=== PATIENT | female | born 1950 | race Caucasian/White ===

== ENCOUNTER 2024-01-02 13:39 | Inpatient (IN) | payer OTHER, SELFPAY ==
[2024-01-02] VITALS (17 sets, daily range): BP systolic 137–170; BP diastolic 55–109; BMI 28.8
[2024-01-02 07:44] LABS: % Basophils 0.4 % (0-2); % Eosinophils 0.4 % (0-6); % Immature Granulocytes 0.4 % (0-0.5); % Lymphocytes 19.1 % (20.5-51.1); % Monocytes 4.2 % (1.7-9.3); % Neutrophils 75.5 % (42.2-75.2); Absolute Lymphocytes 1.4 10^3/uL (1.2-3.4); Absolute Monocytes 0.3 10^3/uL (0.1-0.6); Absolute Neutrophils 5.7 10^3/uL (1.4-6.5); Hematocrit 32.7 % (37.0-47.0); Hemoglobin 12.1 g/dL (12.0-16.0); Mean Corpuscular Hgb 30.9 pg (27.0-31.0); Mean Corpuscular Volume 83.6 fL (81.0-99.0); Mean Platelet Volume 8.8 fL (7.4-10.4); Nucleated Red Blood Cells % 0 %; Platelet Count 262 10^3/uL (130-400); Red Blood Cell Count 3.91 10^6/uL (4.20-5.40); Red Cell Dist. Width 12.3 % (11.5-14.5); White Blood Cell Count 7.5 10^3/uL (4.8-10.8)
[2024-01-02] MEDS: BENTYL 20 MG IM (07:45)
[2024-01-02] MEDS: TORADOL 15 MG IV (07:45)
[2024-01-02 07:55] LABS: ALT (SGPT) 16 U/L (0-35); AST (SGOT) 26 U/L (14-36); Albumin 4.9 g/dl (3.5-5.0); Alkaline Phosphatase 76 U/L (38-126); Blood Urea Nitrogen 32 mg/dl (7-17); Calcium 10.2 mg/dl (8.4-10.2); Carbon Dioxide 22 mmol/L (22-30); Chloride 100 mmol/L (98-107); Estimated Creatinine Clearance 45 ml/min; Glucose 164 mg/dl (70-99); Potassium 4.3 mmol/L (3.5-5.1); Sodium 134 mmol/L (135-145); Total Bilirubin 0.7 mg/dl (0.2-1.3); eGFR 48.39
--- NOTE | 2024-01-02 08:15 | ED.GENMED ---
History of Present Illness
General
Chief Complaint: Abdominal Pain
Source: patient
Exam Limitations: none
Time Seen by Provider: 01/02/24 07:35
Nursing documentation reviewed up to this point in time: agreed with
History of Present Illness
History of Present Illness:
73-year-old female with past medical history of GERD, hypertension presenting to the emergency department today with concerns of lower abdominal pain and started at 3 AM this morning which is roughly 3 hours prior to arrival to the emergency
department. Associated nausea no vomiting no changes in bowel movements no chest pain or shortness of breath. Pain is diffuse to the abdomen seems to be maximal to the right lower and right upper abdomen.
Review of Systems
Review of Systems
Allergies reviewed?: Yes
All Other Systems: ROS reviewed and negative except as documented in HPI and ROS
Phy Exam
Physical Exam
Physical Exam:
GENERAL: Alert , in no apparent distress
EYE: pupils equal and reactive
NECK: Supple, no significant adenopathy.
ENT: o/p clr, mmm.
CARDIAC: Regular rate and rhythm .
LUNGS: Clear breath sounds bilaterally, no acute respiratory distress, no wheezes/rales/rhonchi
ABDOMEN: Diffuse abdominal pain no focal tenderness
NEUROLOGICAL: Alert and oriented, no focal neuro deficits
SKIN: Warm and dry, skin intact.
MUSCULOSKELETAL: No edema, well perfused.
PSYCH: Normal and appropriate interaction.
Course
Orders/Labs/Results
Orders:
Orders
01/02/24 07:27
Electrocardiogram (*1) Urgent
Reason for Study: Abdominal Pain
EKG- Treatment ONCE
01/02/24 07:35
CMP [Comprehensive Metabolic Panel] Urgent
Complete Blood Count/With Diff Urgent
01/02/24 07:41
CT Abd/Pel (IV only)-DH only Urgent
Comment:
Reason For Exam: diffuse abd pain abrupt this am
Urinalysis Reflex To Culture Urgent
01/02/24 07:42
Dicyclomine HCl [Bentyl] 20 mg IM NOW STA
Ketorolac [Toradol] 15 mg IV NOW STA
01/02/24 09:46
NG Tube [Gastrointestinal Tubes] As Directed
Type: [place] sump
To suction?: Yes
Type of suction: Low intermittent
Irrigate tube?: Yes
Irrigant: Tap Water
Frequency: Q4H
Amount in mls: 30
Irrigation Directions: Irrigate Q4H and PRN
01/02/24 Lunch
NPO
Allow oral meds: Yes
Allow clear liquids: No
01/02/24 10:08
HYDROmorphone [Dilaudid] 1 mg IV NOW STA
01/02/24 11:19
HYDROmorphone [Dilaudid] 0.5 mg IV NOW STA
Chest X-ray Portable [CR Chest Portable - 1 View] Urgent
Comment:
Reason For Exam: ng tube confirmation
Reason Study Needs to be Portable: Unable to Transport
01/02/24 12:30
CeFAZolin 2 GRAM [Ancef] 2 grams in 10 ml IV PRE PROCEDURE
MetroNIDAZOLE 500 MG/100 ML [Flagyl 500 mg] 100 ml IV ONCE
Abnormal Lab Results
01/02/24
07:35
RBC 3.91 L 10^6/uL
(4.20-5.40)
Hct 32.7 L %
(37.0-47.0)
Neutrophils % 75.5 H %
(42.2-75.2)
Lymphocytes % 19.1 L %
(20.5-51.1)
Sodium 134 L mmol/L
(135-145)
BUN 32 H mg/dl
(7-17)
Creatinine 1.2 H mg/dL
(0.6-1.0)
Glucose 164 H mg/dl
(70-99)
01/02/24 07:35
01/02/24 07:35
Vital Signs
Initial and Last Documented VS:
Initial Vital Signs
Pulse Resp BP Pulse Ox
52 14 144/55 100
01/02/24 07:26 01/02/24 07:26 01/02/24 07:26 01/02/24 07:26
Last Documented Vital Signs
Temp Pulse Resp BP Pulse Ox
98.2 F 54 8 137/64 99
01/02/24 07:28 01/02/24 11:00 01/02/24 11:00 01/02/24 11:00 01/02/24 11:00
MDM/Problems Addressed
MDM/Problems Addressed:
73-year-old female presenting to the emergency department with diffuse abdominal pain occurring earlier this morning a few hours prior to arrival to the emergency department associated nausea no vomiting. Has been feeling somewhat constipated.
Here she is diffuse vague abdominal tenderness nonperitoneal no guarding. No focal tenderness. SBO found on CT scan. Case discussed with general surgery saw the patient who will likely take her to the OR today NG tube placed admitted to medicine.
*Critical Care Note
Total Time (30-74mins, 75-104mins- exclusive of procedures): Not Applicable
ED Attending Note
-
Portions of this chart may have been created with voice recognition software.� Occasional wrong word or��sound alike� substitutions may have occurred due to the inherent limitations of voice recognition software.
Discharge Plan
Departure
Patient Disposition: Admit
Date of Disposition: 01/02/24
Time of Disposition: 11:51
Admit to: Med/Surg
Admit to doctor: [place]
Presentation/result/management discussed w/ accepting MD/DO: Hospitalist
Patient with high blood pressure during this ER visit?: No
Condition: Good
Covid-19: Not Applicable
Discharge Problem:
SBO (small bowel obstruction)
Prescriptions:
No Action
meloxicam 15 mg Tablet
15 mg PO DAILY
oxycodone-acetaminophen 5-325 mg Tablet
1 tab PO BID
Patient Comments:
01/02/24: filled 12/13/23 for 60 tablets at [facility].
magnesium oxide 400 mg (241.3 mg magnesium) Tablet
400 mg PO DAILY
esomeprazole magnesium 40 mg Capsule,Delayed Release(Dr/Ec)
40 mg PO DAILY
docusate sodium [Stool Softener] 100 mg Capsule
100 mg PO QPM
lisinopril-hydrochlorothiazide 20-25 mg Tablet
1 tab PO DAILY
omega 0-ely-khc-fish oil [Fish Oil] 1,000 mg (120 mg-180 mg) Capsule
1 cap PO DAILY
vonwvdoindz-B2-Ffjzvuesa serr [Osteo Bi-Flex (5-Loxin)] 1,500-400-100 mg-unit-mg Tablet
1 tab PO DAILY
turmeric 400 mg Capsule
400 mg PO DAILY
Referrals:
Mayank Esquivel DO [Family Provider] -
Interventions
Interventions:
*Risk Screen - Suicide Last Done: 01/02/24 07:40
*Neglect/Abuse Screening Last Done: 01/02/24 07:40
ED- Fall Risk Assessment Last Done: 01/02/24 07:40
*ED COVID-19 Vaccine History Last Done: 01/02/24 07:40
FU-Bgbosl-Wxosarvqzi Assessment Last Done: 01/02/24 07:40
Discharge Date and Time
Print Language: BELARUSIAN
[2024-01-02] MEDS: DILAUDID 1 MG IV (10:24)
--- NOTE | 2024-01-02 10:58 | CON.GS ---
Addendum entered and electronically signed by Franky Arguello MD 01/02/24 12:32:
Patient seen and examined.
Patient is a 73 yo F with a PMH of HTN, spinal stenosis and chronic back pain, and s/p open ERIC who presents with less than 24 hours of abdominal pain. Ms. Krueger states that she awoke acutely at 3 AM this morning with severe abdominal pain. Pain
is throughout her abdomen though primarily in the RUQ. Associated nausea and vomiting. No fevers or chills. She denies any issues prior to this. No flatus or bowel movement since the onset of symptoms. Currently she continues to have abdominal
pain and discomfort.
Gen: NAD
Abd: soft, tender diffusely primarily in RUQ, distended, localized peritonitis, lower midline incision well healed
Labs and CT scan imaging were reviewed.
Patient is a 73 yo F p/w SBO likely secondary to adhesions
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 Fair degree of small bowel distention with associated bowel wall thickening and mesenteric edema. No evidence of pneumatosis or free air. Normal
WBC, afebrile and hemodynamically stable. Lactate pending. Natural history and pathophysiology of bowel obstructions was briefly reviewed. Options for management including medical management with bowel rest, decompression, and IV fluid
resuscitation versus surgical management were considered and discussed. Given the concerning findings on her CT scan as well as level of persistent pain would recommend operative exploration.
Plan for a laparoscopic possible open exploratory laparotomy, lysis of adhesions, possible bowel resection. The procedure itself, as well as the risks, benefits, and alternatives was discussed. Specifically, we discussed the risks of bleeding,
infection, injury to surrounding structures (bowel), wound complications, recurrent bowel obstructions, and general anesthetic complications. Typical postprocedure recovery was discussed. All questions answered. Consent signed.
-- Laparoscopic possible open exploratory laparotomy, lysis of adhesions, possible bowel resection
-- NPO, IVF, NGT decompression
-- Abx: Ancef and Flagyl
-- Admit post-operatively
Original Note:
Consultation
-
Requesting Provider: Kennedy
Reason for Consultation: sbo
Medical History
-
Chief Complaint: abdominal pain
History of Present Illness:
Ms. Krueger is a 73 yo female with a h/o HTN, GERD and ERIC who presents with severe right lower abdominal pain which began acutely around 3 am this morning accompanied initially by nausea and vomiting. She denies fevers or chills. She notes no
problems yesterday with eating or drinking fluids with normal bowel function. On exam, she is significantly tender to the right side of the abdomen with guarding and distention present, there is mild generalized tenderness to the left abdomen as
well.
Past Medical History
Past Medical History: GERD, HTN and Other (spinal stenosis)
Past Surgical History: Gynecological (ERIC)
Social History
Tobacco: Non-Smoker
Alcohol: Other (previously drank heavily but quit remotely)
Living: With Family
Family History
Family History: Reviewed & Not Pertinent
Allergies / Home Medications
Allergy/AdvReac Type Severity Reaction Status Date / Time
No Known Allergies Allergy Verified 01/02/24 07:34
�Medication �Instructions �Recorded �Confirmed �Type
docusate sodium 100 mg capsule 100 mg PO QPM 01/02/24 01/02/24 History
(Stool Softener)
esomeprazole magnesium 40 mg 40 mg PO DAILY 01/02/24 01/02/24 History
capsule,delayed release
glucosamine SWz-N5-Odcfaoxke 1 tab PO DAILY 01/02/24 01/02/24 History
james 1,500 mg-400 unit-100 mg
tablet (Osteo Bi-Flex (5-Loxin))
lisinopril 20 1 tab PO DAILY 01/02/24 01/02/24 History
mg-hydrochlorothiazide 25 mg tablet
magnesium oxide 400 mg (241.3 mg 400 mg PO DAILY 01/02/24 01/02/24 History
magnesium) tablet
meloxicam 15 mg tablet 15 mg PO DAILY 01/02/24 01/02/24 History
omega 0-hkm-ffz-fish oil 1,000 mg 1 cap PO DAILY 01/02/24 01/02/24 History
(120 mg-180 mg) capsule (Fish Oil)
oxycodone-acetaminophen 5 mg-325 1 tab PO BID 01/02/24 01/02/24 History
mg tablet
turmeric 400 mg capsule 400 mg PO DAILY 01/02/24 01/02/24 History
Review of Systems
-
History Source: Patient and Family
All other systems: Negative unless noted
A 10 point review of systems was completed, and was negative except as per HPI.
Physical Exam
Vital Signs
Temp Pulse Resp BP Pulse Ox
98.2 F 63 9 148/59 100
01/02/24 07:28 01/02/24 09:15 01/02/24 09:15 01/02/24 08:00 01/02/24 09:15
01/01/24 01/02/24 01/03/24
06:59 06:59 06:59
Actual Weight 78.4 kg
Body Mass Index (BMI) 28.8
Lab Results
01/02/24 07:35
01/02/24 07:35
WBC 7.5 10^3/uL (4.8-10.8) 01/02/24 07:35
Hgb 12.1 g/dL (12.0-16.0) 01/02/24 07:35
Hct 32.7 % (37.0-47.0) L 01/02/24 07:35
Plt Count 262 10^3/uL (130-400) 01/02/24 07:35
Abs Immat Gran (auto) 0.0 10^3/uL (0-0.05) 01/02/24 07:35
Neutrophils % 75.5 % (42.2-75.2) H 01/02/24 07:35
Physical Exam
General: Well Developed and Pain; Negative Comfortable
HEENT: Moist Mucous Membranes
Respiratory: Non Labored Respirations
GI: Soft, Tender (severe to right side with guarding, mild tenderness to left) and Distended
Skin: Warm
Neuro: Awake, Alert and AO x 3
Psych: Calm
Data Reviewed
-
CT Scan: Image Personally Visualized and interpreted, Report Reviewed by me, Discussed with Physician, Discussed with Patient and Discussed with Family
Labs: Labs Reviewed by me, Discussed with Nurse, Discussed with Patient and Discussed with Family
Old Records: Reviewed
Assessment / Plan
-
73 yo female with a h/o HTN, GERD and ERIC who presents with severe abdominal pain on the right side which began acutely this am around 3am with n/v. CT reviewed with concern for a closed loop small bowel obstruction to the distal small bowel in the
RLQ. No leukocytosis or fevers present. BUN/Cr noted to be mildly elevated suspect dehydration given acute vomiting this am. Vitals stable.
--Admit to medicine
--NPO for OR today for dx lap
--Analgesics/antiemetics prn
--IVF while NPO
[2024-01-02] MEDS: DILAUDID 0.5 MG IV ×2 (11:26→20:27)
--- NOTE | 2024-01-02 12:15 | W.SUR.PREOP ---
Pre-Operative Surgical Note
-
I have examined this patient prior to the performance of the scheduled procedure.
The patient's condition is unchanged from the time of the current History and
Physical and the patient is able to undergo the scheduled procedure.
--- NOTE | 2024-01-02 13:15 | HPS.HSE ---
Addendum entered and electronically signed by Dionisio Mallory MD 01/03/24 09:22:
I saw and examined the patient.
The DIETARY SERVICES MANAGER or PA's note was reviewed and I agree with the note.
Comment: 73 yo Female with pmhx of spinal stenosis on opioids,hysterectomy came to the hospital with abdominal pain,N/V. On CT its consistent with closed loop SBP. Seen by surgery in ED and plan to go to OR. Currently has NGT. Deneis nausea. Denies
chest pain,sob. Discussed with family at bedside. NPO. Pain Control. Gentle hydration.
General: no distress,conversant
HEENT: Anicteric,+NGT
Respiratory: Clear; No Wheezes
Cardiac: S1/S2 and Regular Rhythm
GI: Soft, Non Distended and Tender (Midepigastric)
Musculoskeletal: No Edema
Neuro: AO x 3, No Motor Deficits and Nonfocal/grossly intact
Psych: Calm
Original Note:
Family Physician
-
Family Physician: Mayank Esquivel
Chief Complaint
-
Abdominal pain, nausea, vomiting, constipation
History of Present Illness
73-year-old female woke up suddenly at 3 AM with mid abdominal pain to the right side with nausea, vomiting. She reports has history of chronic constipation her last bowel movement was approximately 1 week ago which is typical for her. She is on
oral opiates oxycodone/acetaminophen 5/325 1 tab twice daily. She denies fever, chills, chest pain, palpitations, shortness breath, cough, diarrhea, urinary symptoms.
She has past medical history spinal stenosis on chronic oral opiates, GERD, HTN, chronic constipation, hypomagnesemia, former alcohol abuse used to drink 6 pack a day until January 10, 2023
Medical History
Past Medical History
Past Medical History: Reports Other
Additional Past Medical History:
spinal stenosis on chronic oral opiates,
GERD
HTN,
chronic constipation
hypomagnesemia
former alcohol abuse used to drink 6 pack a day until January 10, 2023
Past Surgical History: Reports Other
Additional Past Surgical History:
Hysterectomy
Thyroid surgery
Social History
Tobacco: Non-smoker
Alcohol: Former (former alcohol abuse used to drink 6 pack a day until January 10, 2023)
Drug: None
Personal: Single
Living: With Family (Adult son lives with her)
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
Family History
Family History: Other (Mother age 80s history of dementia, HTN, hypothyroidism, father age 80s [place], HTN, hyperlipidemia, sibling sister CVA COPD Brother [place] age 76 other siblings unsure)
Allergies / Home Medications
Allergies reflects when Allergies were last updated in [facility].
Home Medications with original date entered in [facility]
Allergy/Medication List:
Allergies
Allergy/AdvReac Type Severity Reaction Status Date / Time
No Known Allergies Allergy Verified 01/02/24 07:34
Home Medications
docusate sodium 100 mg capsule (Stool Softener) 100 mg PO QPM 01/02/24
esomeprazole magnesium 40 mg capsule,delayed release 40 mg PO DAILY 01/02/24
glucosamine HUj-O5-Hzwtmskml james 1,500 mg-400 unit-100 mg tablet (Osteo Bi-Flex (5-Loxin)) 1 tab PO DAILY 01/02/24
lisinopril 20 mg-hydrochlorothiazide 25 mg tablet 1 tab PO DAILY 01/02/24
magnesium oxide 400 mg (241.3 mg magnesium) tablet 400 mg PO DAILY 01/02/24
meloxicam 15 mg tablet 15 mg PO DAILY 01/02/24
omega 8-syd-hlu-fish oil 1,000 mg (120 mg-180 mg) capsule (Fish Oil) 1 cap PO DAILY 01/02/24
oxycodone-acetaminophen 5 mg-325 mg tablet 1 tab PO BID 01/02/24
turmeric 400 mg capsule 400 mg PO DAILY 01/02/24
Review of Systems
-
History Source: Patient and Family (At bedside)
A 12 point ROS was completed and negative except as noted: Yes
Constitutional: Denies Fever or Fatigue
EENT: Denies Sore Throat or Runny Nose
Respiratory: Denies Cough or Trouble Breathing
Cardiac: Denies Chest Pain, Diaphoresis or Palpitations
Abdomen/GI: Reports Abdominal Pain (Midepigastric to right upper quadrant), Nausea, Vomiting and Constipated (1 week); Denies Diarrhea
: Denies Dysuria, Frequency, Flank Pain, Incontinence, Difficulty Voiding or Urgency
Musculoskeletal: Denies Joint Pain or Edema
Skin: Denies Itching
Neurological: Denies Dizzy, Headache or Weakness
Endocrine: Reports No Symptoms
Hematologic/Lymphatic: Reports No Symptoms
Psych: Reports Calm
Physical Exam
Vital Signs
Vital Signs
Temp Pulse Resp BP Pulse Ox
98.2 F 57 15 170/73 96
01/02/24 07:28 01/02/24 12:30 01/02/24 12:30 01/02/24 12:00 01/02/24 12:30
Physical Exam
General: Conversant, Pain and Obese; No Fever or Chills
HEENT: NormoCephalic, Anicteric, PERRLA and [place] Conjunctivae
Respiratory: Clear; No Wheezes, Rales or Rhonchi
Cardiac: S1/S2 and Regular Rhythm; No Murmur, Rub or Gallop
Breast: Deferred by me
GI: Soft, Non Distended and Tender (Midepigastric to right upper quadrant with hypoactive bowel sounds although abdomen is soft)
Rectal: Deferred by Provider
Genito-urinary: Deferred by me
Musculoskeletal: No Clubbing, No Cyanosis and No Edema
Skin: Warm and Dry; No Rash
Neuro: AO x 3, No Motor Deficits and Nonfocal/grossly intact; No Cranial Nerves Intact, DTR's Intact & Symmetrical, Slurred Speech, Facial Droop or Tremors
Psych: Calm
Laboratory Results
-
01/02/24 07:35
01/02/24 07:35
Laboratory Results
Total Bilirubin 0.7 mg/dl (0.2-1.3) 01/02/24 07:35
AST 26 U/L (14-36) 01/02/24 07:35
ALT 16 U/L (0-35) 01/02/24 07:35
Alkaline Phosphatase 76 U/L (38-126) 01/02/24 07:35
Data Reviewed
-
CT Scan: Report Reviewed by me
Lab Data: Labs Reviewed by me
Impression/Plan
-
Impression/plan:
Admit to MedSurg
#Closed loop SBO
Patient is on chronic opiates twice daily
-Consult general surgery
-Preop Ancef
-N.p.o.for OR today for laparoscopy
-IV NSS
-IV pain control/antiemetics as needed
-NG tube to low intermittent suction
-IV Protonix 40 mg daily
#Spinal stenosis on chronic oral opiates
Patient takes oxycodone/acetaminophen 5/325mg 1 tab p.o. twice daily
-We will convert to IV Dilaudid while patient is n.p.o.
#CHRISTINE unknown baseline renal function
Creat
-IV NSS
-Follow BMP, follow UA, urine creatinine, urine sodium
#HTN�benign
-Hydralazine IV 10 mg every 6 hours as needed SBP>165 jaquan > 100
-Hold lisinopril/HCTZ will need to obtain dosage from patient
#Spinal stenosis on chronic oral opiates
-Hold meloxicam 15 mg daily
#former alcohol abuse used to drink 6 pack a day until January 10, 2023
DVT prophylaxis
SCDs
Full code
[2024-01-02 13:30] LABS: Lactic Acid 1.3 mmol/L (0.7-2.0)
--- NOTE | 2024-01-02 16:03 | W.IMMPOSTOP ---
Addendum entered and electronically signed by Franky Arguello MD 01/05/24 16:04:
[facility]# [id number]
Original Note:
Surgical Immed Post Op Note
-
Primary Surgeon: Saundra
Assisting Surgeon: SANDI Barajas
Pre-op Diagnosis: SBO
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
Procedure Performed: Diagnostic laparoscopy, exploratory laparotomy, small bowel resection with primary anastomosis
Anesthesia Type: General
Specimen / Cultures:
1. Portion of small bowel
Estimated Blood Loss: 101 cc
Complications: None
Operative Findings:
1. Diagnostic laparoscopy identifying segment of ischemic bowel, conversion to midline laparotomy
2. Omental adhesion within pelvis taken down, adhesion within RUQ causing midgut volvulus
3. 55 cm segment of ischemic bowel, resection with [id number] stapled anastomosis using MAGALI 80 blue load (Baljinder technique)
4. Small bowel run from TI to LT
5. NGT placement confirmed, Mitchell in place
[2024-01-02] MEDS: NSS 1000 IV (16:47)
[2024-01-02] MEDS: DILAUDID 0.25 MG IV (17:01)
--- NOTE | 2024-01-02 17:45 | PTCARENOTE ---
Patient admitted through the emergency room for small bowel obstruction.The patient was taken to surgery for an exploratory laparotomy and small bowel obstruction.The patient rates her pain at a 5-6 out of 10.Vital signs are stable.The dressing is
intact with a scant amount of drainage.The patient is in her bed with the call walters in reach.
[2024-01-02 18:09] LABS: Lactic Acid 1.2 mmol/L (0.7-2.0)
[2024-01-02 18:12] LABS: Blood Urea Nitrogen 34 mg/dl (7-17); Calcium 9.1 mg/dl (8.4-10.2); Carbon Dioxide 23 mmol/L (22-30); Chloride 100 mmol/L (98-107); Estimated Creatinine Clearance 49 ml/min; Glucose 167 mg/dl (70-99); Hematocrit 34.3 % (37.0-47.0); Hemoglobin 12.6 g/dL (12.0-16.0); Mean Corp Hgb Conc. 36.7 g/dL (33.0-37.0); Mean Corpuscular Volume 84.5 fL (81.0-99.0); Mean Platelet Volume 9.2 fL (7.4-10.4); Platelet Count 214 10^3/uL (130-400); Potassium 4.2 mmol/L (3.5-5.1); Red Blood Cell Count 4.06 10^6/uL (4.20-5.40); Red Cell Dist. Width 12.4 % (11.5-14.5); Sodium 133 mmol/L (135-145); eGFR 53.72
[2024-01-02] MEDS: ZOSYN 50 IV ×2 (18:28→23:41)
[2024-01-02] MEDS: OFIRMEV 100 IV (21:11)
[2024-01-02] MEDS: NSS (PRESERVATIVE FREE) IV (23:38)
[2024-01-02] MEDS: PROTONIX IV IV (23:38)
[2024-01-03] MEDS: DILAUDID 0.5 MG IV ×3 (00:28→10:59)
[2024-01-03] MEDS: NSS 1000 IV ×2 (01:09→11:04)
[2024-01-03] MEDS: APRESOLINE 5 MG IV ×2 (03:04→08:12)
[2024-01-03] MEDS: TORADOL 10 MG IV (03:08)
[2024-01-03 03:10] VITALS: BP 175/80
[2024-01-03] MEDS: OFIRMEV 100 IV ×3 (04:27→16:00)
[2024-01-03] MEDS: ZOSYN 50 IV ×4 (05:45→23:41)
[2024-01-03 05:59] VITALS: BMI 28.2
[2024-01-03 06:41] LABS: Hematocrit 31.4 % (37.0-47.0); Hemoglobin 11.7 g/dL (12.0-16.0); Mean Corp Hgb Conc. 37.3 g/dL (33.0-37.0); Mean Corpuscular Hgb 31.9 pg (27.0-31.0); Mean Corpuscular Volume 85.6 fL (81.0-99.0); Mean Platelet Volume 9.1 fL (7.4-10.4); Platelet Count 196 10^3/uL (130-400); Red Blood Cell Count 3.67 10^6/uL (4.20-5.40); Red Cell Dist. Width 12.7 % (11.5-14.5)
[2024-01-03 07:11] LABS: ALT (SGPT) 13 U/L (0-35); AST (SGOT) 28 U/L (14-36); Alkaline Phosphatase 51 U/L (38-126); Blood Urea Nitrogen 41 mg/dl (7-17); Carbon Dioxide 23 mmol/L (22-30); Chloride 101 mmol/L (98-107); Estimated Creatinine Clearance 41 ml/min; Glucose 138 mg/dl (70-99); Magnesium 2.1 mg/dl (1.6-2.3); Potassium 3.7 mmol/L (3.5-5.1); Sodium 134 mmol/L (135-145); Total Bilirubin 0.6 mg/dl (0.2-1.3); Total Protein 6.1 g/dl (6.3-8.2); eGFR 43.96
[2024-01-03 07:55] VITALS: BP 164/76
[2024-01-03] MEDS: PROTONIX IV 40 MG IV (08:16)
[2024-01-03] MEDS: NSS (PRESERVATIVE FREE) 10 ML IV (08:16)
--- NOTE | 2024-01-03 08:36 | W.PN.HOSP.TC ---
Today's Communication/Plan
-
see bold
Assessment / Plan
Assessment / Plan
Gen: NAD, AAOx3.
Eyes: EOMI, PERRLA, no scleral icterus.
Neck: supple.
CV: RRR, +S1/S2, no m/r/g.
Resp: CTAB, no rales, wheezes, or rhonchi.
Abd: absent BS, soft, NT to light palpation, ND
Skin: No rashes.
Neuro: CN 2-12 intact, non-focal.
Psych: Normal mood and affect.
Closed loop SBO:
-on chronic opiates which likely contributed to SBO
-s/p 01/02/24 diagnostic laparoscopy, exploratory laparotomy, small bowel resection with primary anastomosis
-surgery following
-cont Zosyn
-cont IVFs
-cont NGT decompression
-Dilaudid/Toradol PRN
Other problems:
Spinal stenosis: on chronic opiates (chronic opiate use with dependence)
CKD3a (doubt CHRISTINE at this time, unknown baseline Cr)
Essential HTN: IV Hydralazine PRN
Former alcohol abuse disorder
FULL/SCDs
Anticipated Discharge: > 48 hours
Subjective/Interval History
-
Date of Service: January 03, 2024
Abdomen 'sore.' Denies flatus or BM.
Objective Data
-
Labs:
Laboratory Results
01/03/24
06:23
WBC 11.0 H
Hgb 11.7 L
Hct 31.4 L
Plt Count 196
Sodium 134 L
Potassium 3.7
Chloride 101
Carbon Dioxide 23
BUN 41 H
Creatinine 1.3 H
Glucose 138 H
Calcium 9.0
Total Bilirubin 0.6
AST 28
ALT 13
Alkaline Phosphatase 51
Vital Signs:
Vital Signs
Temp Pulse Resp BP Pulse Ox
98.2 F 68 16 164/76 95
01/03/24 07:55 01/03/24 08:12 01/03/24 07:55 01/03/24 08:12 01/03/24 07:55
I&O
01/02/24 01/03/24 01/04/24
06:59 06:59 06:59
Intake Total 1560 / 1560
Output Total 1085 / 1085
Balance 475 / 475
--- NOTE | 2024-01-03 09:22 | W.PN.UPDATE ---
Update Note
Progress Note Update
For Billing purpose only for H and P
--- NOTE | 2024-01-03 09:59 | W.PN.GS2 ---
Today's Communication / Plan
-
NGT/NPO/IVF
Assessment / Plan
-
73 yo female presenting acutely with a closed loop small bowel obstruction with midgut volvulus and ischemic bowel now POD #1 dx lap, ex lap with SBR
Afebrile, Bp elevated, vitals stable
Await return of bowel function
BUN/Cr elevated, suspect dehydration
Mild leukocytosis, mild acute anemia secondary to expected losses and hemodilution
--C/W NGT to suction
--NPO with ice chips for comfort
--IVF while NPO
--Trend labs
--Hold NSAIDs in light of elevated Cr
--C/W Ofirmev/dilaudid as needed for pain
--SCD's while in bed, lovenox sq for vte ppx (will change to heparin if cr continues to rise)
Subjective Data
-
Date of Service: January 03, 2024
Patient seen and examined at bedside with Dr. Geller. Denies n/v. Pain present but improved from prior to surgery. Not yet passing flatus. C/O dry mouth.
Objective Data
-
Intake and Output
01/02/24 01/03/24 01/04/24
06:59 06:59 06:59
Intake Total 1560 / 1560
Output Total 1085 / 1085
Balance 475 / 475
Intake:
IV fluids (Total) 1200 / 1200
NSS 0 / 0
Normosol 100 / 100
IV piggybacks 300 / 300
Amount instilled into GI Tube ( 60 / 60
Total)
[place] Sump 60 / 60
Output:
Gastrointestinal tube output ( 535 / 535
Total)
[place] Sump 535 / 535
Urine, Mitchell 550 / 550
Vital Signs
Temp Pulse Resp BP Pulse Ox
98.2 F 68 16 164/76 95
01/03/24 07:55 01/03/24 08:12 01/03/24 07:55 01/03/24 08:12 01/03/24 07:55
Lab Results
01/03/24 06:23
01/03/24 06:23
Calcium 9.0 mg/dl (8.4-10.2) 01/03/24 06:23
Magnesium 2.1 mg/dl (1.6-2.3) 01/03/24 06:23
Total Bilirubin 0.6 mg/dl (0.2-1.3) 01/03/24 06:23
AST 28 U/L (14-36) 01/03/24 06:23
ALT 13 U/L (0-35) 01/03/24 06:23
Alkaline Phosphatase 51 U/L (38-126) 01/03/24 06:23
Total Protein 6.1 g/dl (6.3-8.2) L 01/03/24 06:23
Albumin 4.0 g/dl (3.5-5.0) 01/03/24 06:23
Physical Exam
-
NAD
ABD soft, expected tenderness, ccnp, mild distention. NGT with brown outputs
Midline Incisions with intact aquacel dressing. Lap incisions with bandaids
Mitchell with clear, yellow urine
[2024-01-03 11:05] VITALS: BP 140/63
[2024-01-03 15:43] VITALS: BP 152/62
--- NOTE | 2024-01-03 15:52 | CM ---
Initial assessment completed with pt at bedside.
Pt is a 73yr old admitted with small bowel obstruction with surgical resection
Pt also has Spinal stenosis that she is on chronic pain meds for which is suspected towards cause. NGT currently in place.
Pt is at baseline independent and lives with her son in a 2 story home with 0 steps to enter.
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 No use of DME and no personal use of VN/SNF.
Pts is currently a pt in [facility], Mayank Krueger, who is being placed and pt is involved in plan of care.
Pt does not anticipate needs, though realizes she does not know extent of wound care and dc needs at this time. Would prefer family training if possible due to a family dog she will not be able to put away for VN visits.
PCP; Mayank Esquivel
Pharm; Krysta Bowman
PLAN; Home with no needs anticipated by pt. Follow for possible family training on surgical wound care or other medical needs at dc.
[2024-01-03] MEDS: LOVENOX 40 MG SC (17:24)
[2024-01-03 19:21] VITALS: BP 168/70
[2024-01-03 22:40] VITALS: BP 163/79
[2024-01-03] MEDS: APRESOLINE 10 MG IV (22:44)
[2024-01-04] MEDS: NSS 1000 IV ×3 (01:40→23:00)
[2024-01-04] MEDS: NSS IV ×2 (01:42→10:13)
[2024-01-04] MEDS: DILAUDID 0.5 MG IV (03:30)
[2024-01-04] MEDS: ZOSYN 50 IV ×4 (05:23→23:00)
[2024-01-04 06:00] VITALS: BMI 28.3
[2024-01-04 06:34] LABS: % Basophils 0.1 % (0-2); % Immature Granulocytes 0.5 % (0-0.5); % Monocytes 7.9 % (1.7-9.3); % Neutrophils 83.5 % (42.2-75.2); Absolute Immature Granulocytes 0.1 10^3/uL (0-0.05); Absolute Lymphocytes 0.8 10^3/uL (1.2-3.4); Absolute Monocytes 0.8 10^3/uL (0.1-0.6); Absolute Neutrophils 8.1 10^3/uL (1.4-6.5); Hematocrit 30.2 % (37.0-47.0); Hemoglobin 10.9 g/dL (12.0-16.0); Mean Corp Hgb Conc. 36.1 g/dL (33.0-37.0); Mean Corpuscular Hgb 30.8 pg (27.0-31.0); Mean Corpuscular Volume 85.3 fL (81.0-99.0); Mean Platelet Volume 9.5 fL (7.4-10.4); Nucleated Red Blood Cells % 0 %; Platelet Count 212 10^3/uL (130-400); Red Blood Cell Count 3.54 10^6/uL (4.20-5.40); White Blood Cell Count 9.7 10^3/uL (4.8-10.8)
[2024-01-04 06:58] LABS: ALT (SGPT) 12 U/L (0-35); AST (SGOT) 28 U/L (14-36); Alkaline Phosphatase 56 U/L (38-126); Blood Urea Nitrogen 33 mg/dl (7-17); Calcium 9.3 mg/dl (8.4-10.2); Carbon Dioxide 23 mmol/L (22-30); Chloride 102 mmol/L (98-107); Estimated Creatinine Clearance 48 ml/min; Glucose 93 mg/dl (70-99); Potassium 3.2 mmol/L (3.5-5.1); Sodium 136 mmol/L (135-145); Total Bilirubin 0.6 mg/dl (0.2-1.3); Total Protein 6.2 g/dl (6.3-8.2); eGFR 53.72
[2024-01-04 07:13] VITALS: BP 153/70
[2024-01-04] MEDS: NSS (PRESERVATIVE FREE) 10 ML IV (08:14)
[2024-01-04] MEDS: PROTONIX IV 40 MG IV (08:14)
--- NOTE | 2024-01-04 09:01 | CM ---
CM reviewed chart- POD#2 small bowel resection
Post op PT/OT orders requested
Of note, spouse Mayank Krueger currently admitted on 4W with plans for [facility] on dc
Pt has supportive kids available for assistance
Discharge Disposition- home, anticipate with needs
--- NOTE | 2024-01-04 09:59 | W.PN.HOSP.TC ---
Today's Communication/Plan
-
Await return of bowel function
NG tube
Okay for ice chips per surgeon
Assessment / Plan
Assessment / Plan
CVS: S1-S2 normal
Chest: CTA B/L
Abdomen: Laparotomy wound with mild shadowing on Aquacel. Decreased bowel sounds
Extremities: No edema
Closed loop SBO:
-on chronic opiates which likely contributed to SBO
-s/p 01/02/24 diagnostic laparoscopy, exploratory laparotomy, small bowel resection with primary anastomosis
-Surgery following
-Cont Zosyn
-Cont IVFs
-Cont NGT decompression till return of bowel function.
-Dilaudid PRN
Hypokalemia-replace IV
Mild hyponatremia-resolved
Anemia-likely acute postoperative blood loss. But check iron studies
Other Medical Problems:
Spinal stenosis: on chronic opiates (chronic opiate use with dependence)
CKD3a (doubt CHRISTINE at this time, unknown baseline Cr)-Stop Toradol.
Essential HTN: IV Hydralazine PRN. Hold lisinopril hydrochlorothiazide
Former alcohol abuse disorder
FULL CODE
DVT Prophylaxis-SCDs,Lovenox
Anticipated Discharge: 24 - 48 hours
Subjective/Interval History
-
Date of Service: January 04, 2024
Objective Data
-
Labs:
Laboratory Results
01/04/24
05:18
WBC 9.7
Hgb 10.9 L
Hct 30.2 L
Plt Count 212
Sodium 136
Potassium 3.2 L
Chloride 102
Carbon Dioxide 23
BUN 33 H
Creatinine 1.1 H
Glucose 93
Calcium 9.3
Total Bilirubin 0.6
AST 28
ALT 12
Alkaline Phosphatase 56
Vital Signs:
Vital Signs
Temp Pulse Resp BP Pulse Ox
98.2 F 92 15 153/70 97
01/04/24 07:13 01/04/24 07:13 01/04/24 07:13 01/04/24 07:13 01/04/24 07:13
I&O
01/03/24 01/04/24 01/05/24
06:59 06:59 06:59
Intake Total 1560 / 1560 2735 / 2735
Output Total 1085 / 1085 2675 / 2675
Balance 475 / 475 60 / 60
[2024-01-04] MEDS: KCL 270 MEQ IV (10:14)
[2024-01-04 10:30] VITALS: BP 175/84; PULSE 89
[2024-01-04 11:21] VITALS: BP 175/84; PULSE 87; O2SAT 99
--- NOTE | 2024-01-04 11:46 | W.PN.GS2 ---
Today's Communication / Plan
-
c/w NGT (ok to clamp for ambulation)
Assessment / Plan
-
73 yo female presenting acutely with a closed loop small bowel obstruction with midgut volvulus and ischemic bowel now POD #2 dx lap, ex lap with SBR
Afebrile, Bp elevated, vitals stable
Await return of bowel function, starting to have some flatus
BUN/Cr elevated, suspect dehydration: improving with IVF
Mild leukocytosis now resolved, mild acute anemia secondary to expected losses and hemodilution
--C/W NGT to suction
--NPO with ice chips for comfort
--IVF while NPO
--Trend labs
--Hold NSAIDs in light of elevated Cr
--C/W Ofirmev/dilaudid as needed for pain
--SCD's while in bed, lovenox sq for vte ppx
Subjective Data
-
Date of Service: January 04, 2024
Patient seen and examined at bedside with Dr. Geller. Denies n/v. Passing some flatus now. Feeling quite thirsty and taking in quite a bit of ice chips. OOB to chair.
Objective Data
-
Intake and Output
01/03/24 01/04/24 01/05/24
06:59 06:59 06:59
Intake Total 1560 / 1560 2735 / 2735
Output Total 1085 / 1085 2675 / 2675
Balance 475 / 475 60 / 60
Intake:
Oral fluids 250 / 250
IV fluids (Total) 1200 / 1200 2024
NSS 0 / 0
Normosol 100 / 100
IV piggybacks 300 / 300 400 / 400
Amount instilled into GI Tube ( 60 / 60 60 / 60
Total)
[place] Sump 60 / 60 60 / 60
Output:
Gastrointestinal tube output ( 535 / 535 1625 / 1625
Total)
[place] Sump 535 / 535 1625 / 1625
Urine, Mitchell 550 / 550 1050 / 1050
Vital Signs
Temp Pulse Resp BP Pulse Ox
98.2 F 92 15 153/70 97
01/04/24 07:13 01/04/24 07:13 01/04/24 07:13 01/04/24 07:13 01/04/24 07:13
Lab Results
01/04/24 05:18
01/04/24 05:18
Calcium 9.3 mg/dl (8.4-10.2) 01/04/24 05:18
Magnesium 2.1 mg/dl (1.6-2.3) 01/03/24 06:23
Total Bilirubin 0.6 mg/dl (0.2-1.3) 01/04/24 05:18
AST 28 U/L (14-36) 01/04/24 05:18
ALT 12 U/L (0-35) 01/04/24 05:18
Alkaline Phosphatase 56 U/L (38-126) 01/04/24 05:18
Total Protein 6.2 g/dl (6.3-8.2) L 01/04/24 05:18
Albumin 4.0 g/dl (3.5-5.0) 01/04/24 05:18
Physical Exam
-
NAD
ABD soft, expected tenderness, manager inpatient, mild distention. NGT with brown outputs
Midline Incisions with intact aquacel dressing. Lap incisions with bandaids
[2024-01-04 15:00] VITALS: BP 138/77
[2024-01-04] MEDS: LOVENOX 40 MG SC (18:01)
--- NOTE | 2024-01-04 19:46 | PTCARENOTE ---
NGT resumed on suction @1920 with minimal output ~<50ml. NGT removed per orders at 1930. Reinforced education on NPO diet as pt. started asking if she could drink soda now that the tube was out.
[2024-01-04 23:07] VITALS: BP 164/82
[2024-01-05 03:07] VITALS: BP 142/78
[2024-01-05 05:29] VITALS: BMI 28.7
[2024-01-05] MEDS: ZOSYN 50 IV ×4 (06:00→23:16)
--- NOTE | 2024-01-05 06:42 | W.PN.GS2 ---
Addendum entered and electronically signed by Franky Arguello MD 01/05/24 08:38:
--- Abx: Zosyn for 4 days post-op given hemorrhagic ischemic bowel with ascites that may have been seeded due to translocation
Addendum entered and electronically signed by Franky Arguello MD 01/05/24 08:37:
Patient seen and examined.
No complaints. Pain well-controlled. Denies nausea or vomiting. Passing flatus and looser nonbloody stools. Ambulating. Voiding. Denies dizziness or lightheadedness.
Gen: NAD
Abd: soft, mild tenderness, mild distension, non-peritoneal, midline dressing taken down, c/d/i - small area of skin necrosis bennie-umbilically, no erythema, ecchymosis or drainage
Patient is a 73 yo F POD#3 s/p diagnostic laparoscopy, exploratory laparotomy, SBR with primary anastomosis
Recovering well. No major postoperative concerns.
AVSS, slight drift in Hb likely related to operative blood loss related to hemorrhagic and ischemic bowel, no signs of acute ongoing blood loss anemia, continue to trend
-- Clears, possible fulls this evening
-- Pain control: Tylenol, Tramadol, IV Dilaudid PRN, NO NDSAIDS with Cr
-- mIVF
-- OK for home BP medictaions
-- DVT: Lovenox (may need to hold if Hb continues to drift)
-- GI: Home PPI
-- OOB/ambulate
Original Note:
Today's Communication / Plan
-
transition to clear liquids
repeat cbc in the AM
oral pain meds
continue abx
Assessment / Plan
-
73 yo female presented acutely with a closed loop small bowel obstruction with midgut volvulus and ischemic bowel now POD #3 dx lap, ex lap with SBR
Afebrile, vitals near baseline. Able to pass flatus and stools
BUN/Cr elevated, suspect dehydration: improving with IVF: 01/05/24 labs pending
- d/c NGT yesterday; able to tolerate prema inocente without n/v
- transition to clear liquids; continue IVF for now ( lower rate)
- Plan to start full liquids in the evening if able to tolerate clear liquids
- Acute anemia; repeat cbc in the AM
- Hold NSAIDs in light of elevated Cr
- Start oral pain meds: tylenol and tramadol prn
- continue Abx for total of 4 days post op
-SCD's while in bed, lovenox sq for vte ppx
Time Spent
Total Time Spent with Patient (in minutes): 15
Subjective Data
-
Date of Service: January 05, 2024
Patient sitting on the chair very comfortable. Passing some flatus and stools. Tolerating prema inocente in addition to ice chips.
Objective Data
-
Intake and Output
01/03/24 01/04/24 01/05/24
06:59 06:59 06:59
Intake Total 1560 / 1560 2735 / 2735 3235 / 3235
Output Total 1085 / 1085 2675 / 2675 650 / 650
Balance 475 / 475 60 / 60 2585 / 2585
Intake:
Oral fluids 250 / 250 1730 / 1730
IV fluids (Total) 1200 / 1200 2024 1075 / 1075
NSS 0 / 0
Normosol 100 / 100
IV piggybacks 300 / 300 400 / 400 370 / 370
Amount instilled into GI Tube ( 60 / 60 60 / 60 60 / 60
Total)
[place] Sump 60 / 60 60 / 60 60 / 60
Output:
Gastrointestinal tube output ( 535 / 535 1625 / 1625 650 / 650
Total)
[place] Sump 535 / 535 1625 / 1625 650 / 650
Urine, Mitchell 550 / 550 1050 / 1050
Other:
Number of approximated MODERATE 5
amounts of urine
Number of approximated LARGE 1
amounts of urine
How many times incontinent 2
MODERATE amount urine
Vital Signs
Temp Pulse Resp BP Pulse Ox
98.7 F 86 16 142/78 96
01/04/24 23:07 01/04/24 23:07 01/04/24 23:07 01/05/24 03:07 01/04/24 23:07
Calcium 9.3 mg/dl (8.4-10.2) 01/04/24 05:18
Magnesium 2.1 mg/dl (1.6-2.3) 01/03/24 06:23
Total Bilirubin 0.6 mg/dl (0.2-1.3) 01/04/24 05:18
AST 28 U/L (14-36) 01/04/24 05:18
ALT 12 U/L (0-35) 01/04/24 05:18
Alkaline Phosphatase 56 U/L (38-126) 01/04/24 05:18
Total Protein 6.2 g/dl (6.3-8.2) L 01/04/24 05:18
Albumin 4.0 g/dl (3.5-5.0) 01/04/24 05:18
Physical Exam
-
General: No apparant distress
Abdomen: soft, minimal tenderness, no distention.
Midline Incisions with intact aquacel dressing. Lap incisions with band aids
[2024-01-05 06:50] LABS: % Basophils 0.2 % (0-2); % Eosinophils 0.2 % (0-6); % Immature Granulocytes 0.5 % (0-0.5); % Lymphocytes 14.5 % (20.5-51.1); % Monocytes 9.9 % (1.7-9.3); % Neutrophils 74.7 % (42.2-75.2); Absolute Lymphocytes 0.9 10^3/uL (1.2-3.4); Absolute Monocytes 0.6 10^3/uL (0.1-0.6); Absolute Neutrophils 4.7 10^3/uL (1.4-6.5); Hemoglobin 8.8 g/dL (12.0-16.0); Mean Corp Hgb Conc. 36.7 g/dL (33.0-37.0); Mean Corpuscular Hgb 30.4 pg (27.0-31.0); Mean Platelet Volume 9.3 fL (7.4-10.4); Nucleated Red Blood Cells % 0 %; Platelet Count 180 10^3/uL (130-400); Red Blood Cell Count 2.89 10^6/uL (4.20-5.40); Red Cell Dist. Width 12.7 % (11.5-14.5); White Blood Cell Count 6.3 10^3/uL (4.8-10.8)
[2024-01-05 07:00] VITALS: BP 105/69
[2024-01-05 07:37] LABS: ALT (SGPT) 11 U/L (0-35); AST (SGOT) 24 U/L (14-36); Albumin 3.5 g/dl (3.5-5.0); Alkaline Phosphatase 46 U/L (38-126); Blood Urea Nitrogen 22 mg/dl (7-17); Calcium 8.9 mg/dl (8.4-10.2); Carbon Dioxide 24 mmol/L (22-30); Chloride 103 mmol/L (98-107); Estimated Creatinine Clearance 67 ml/min; Glucose 104 mg/dl (70-99); Iron 99 ug/dl (37-170); Potassium 3.2 mmol/L (3.5-5.1); Sodium 134 mmol/L (135-145); Total Bilirubin 0.6 mg/dl (0.2-1.3); Total Protein 5.5 g/dl (6.3-8.2); eGFR > 60.00
[2024-01-05 07:47] LABS: Percent Saturation 50 % (20-50); Total Iron Binding Capacity 198 ug/dl (265-497)
[2024-01-05 08:25] LABS: Vitamin B12 406 pg/ml (239-931)
[2024-01-05] MEDS: NSS (PRESERVATIVE FREE) 10 ML IV (08:27)
[2024-01-05] MEDS: PROTONIX IV 40 MG IV (08:28)
[2024-01-05] MEDS: NSS 1000 IV (08:28)
[2024-01-05] MEDS: ULTRAM 50 MG PO ×2 (08:31→15:19)
--- NOTE | 2024-01-05 11:00 | CM ---
Addendum entered by Inna Lopez 01/05/24 14:17:
Liaison from [facility] met with patient and confirmed plan.
Original Note:
Patient seen at bedside. Patient states that her plan is home with VN; [facility] is who she used with who is currently here at with plans for SNF placement. Patient plan is to go home with [facility] for wound care and then she will return to work.
CM will continue to follow for discharge planning needs.
Plan; home with [facility] pending review
--- NOTE | 2024-01-05 12:08 | W.PN.HOSP.TC ---
Today's Communication/Plan
-
diet advancing per surgery
Assessment / Plan
Assessment / Plan
pt is a 73 year old female
Closed loop SBO-on chronic opiates which likely contributed to SBO--s/p 01/02/24 diagnostic laparoscopy, exploratory laparotomy, small bowel resection with primary anastomosis--cont zosyn--off IVF--diet advancing
Hypokalemia-replace
Mild hyponatremia-resolved
Acute blood loss Anemia--due to acute postoperative blood loss--not iron deficient
Other Medical Problems:
Spinal stenosis: on chronic opiates (chronic opiate use with dependence)
CKD3a (doubt CHRISTINE at this time, unknown baseline Cr)-Stop Toradol.
Essential HTN: IV Hydralazine PRN. Hold lisinopril hydrochlorothiazide--restart as able
Former alcohol abuse disorder
FULL CODE
DVT Prophylaxis-SCDs,Lovenox
Anticipated Discharge: 24 - 48 hours
Subjective/Interval History
-
Date of Service: January 05, 2024
pt going to have diet upgraded
Objective Data
-
Labs:
Laboratory Results
01/05/24 01/05/24
06:26 14:00
WBC 6.3
Hgb 8.8 L Cancelled
Hct 24.0 L Cancelled
Plt Count 180
Sodium 134 L
Potassium 3.2 L
Chloride 103
Carbon Dioxide 24
BUN 22 H
Creatinine 0.8
Glucose 104 H
Calcium 8.9
Total Bilirubin 0.6
AST 24
ALT 11
Alkaline Phosphatase 46
Vital Signs:
max temp for 24 hours
01/04/24
23:07
Temp 98.7 F
Vital Signs
Temp Pulse Resp BP Pulse Ox
98.2 F 71 14 105/69 98
01/05/24 07:00 01/05/24 07:00 01/05/24 07:00 01/05/24 07:00 01/05/24 07:00
I&O
01/04/24 01/05/24 01/06/24
06:59 06:59 06:59
Intake Total 2735 / 2735 3235 / 3235
Output Total 2675 / 2675 650 / 650
Balance 60 / 60 2585 / 2585
Review of Systems
-
All other systems: Reviewed and negative
Physical Exam
-
General: Well Developed, Well Nourished and No Apparent Distress
HEENT: Normocephalic and Atraumatic
Respiratory: Clear to Auscultation; Negative Wheezes or Rhonchi
Cardiac: Regular Rhythm and S1/S2; Negative Murmur
GI: Soft, Nontender, Nondistended and Normal Bowel Sounds
Musculoskeletal: No Clubbing, No Cyanosis and No Edema
Neuro: Awake
Psych: Calm
[2024-01-05] MEDS: KCL 40 MEQ PO (12:51)
--- NOTE | 2024-01-05 13:15 | VNURNOTE ---
Home Health Liaison met with patient at bedside to discuss [facility] nurse visits, schedule and homebound status. Patient is agreeable and understands that visits at home will be 1-3 x per week to assess and teach medical management and check surgical
wounds. The patient is familiar with our services as spouse had us recently. Reviewed with patient [facility] can see her until she returns to work. Patient declined [facility] brochure, she confirmed she has contact information at home. Patient is aware that
[facility] will contact them for start of care within a few days after discharge from . [facility] referral completed in [facility].
[2024-01-05 15:50] VITALS: BP 165/81
[2024-01-05] MEDS: LOVENOX 40 MG SC (17:27)
[2024-01-05 23:05] VITALS: BP 152/72
[2024-01-05] MEDS: DILAUDID 0.5 MG IV (23:18)
[2024-01-06 00:12] VITALS: BP 152/72
[2024-01-06] MEDS: ZOSYN 50 IV ×2 (05:14→12:05)
[2024-01-06 06:00] VITALS: BMI 29.5
[2024-01-06 07:05] VITALS: BP 157/77
--- NOTE | 2024-01-06 07:16 | W.PN.GS2 ---
Today's Communication / Plan
-
- LRD
- Abx: Zosyn (08/27), no need for further on DC
- Acute anemia; repeat CBC pending
- Dispo: OK for DC today from surgical perspective if Hb stable and tolerates diet through lunch, discussed [facility] patient states she does not need
- DC instructions updated
- Call with questions or concerns
Assessment / Plan
-
73 yo female presented acutely with a closed loop small bowel obstruction with midgut volvulus and ischemic bowel now POD #4 dx lap, ex lap with SBR
AVSS
Monitor Hb on AM labs likely acute anemia from dilation and optative blood loss (hemorrhagic bowel and ascites)
Hyponatremic and hypokalemic
Dietary advancement, ROBF
- LRD
- Pain control: Tylenol, and Tramadol, NO NSAIDs given Cr
- Abx: Zosyn, no need for further on DC
- Home BP medictaions
- Acute anemia; repeat CBC pending
- DVT: Lovenox and SCDs
- GI: PPI
- Dispo: OK for DC today from surgical perspective if Hb stable and tolerates diet through lunch, discussed [facility] patient states she does not need
- DC instructions updated
- Call with questions or concerns
Subjective Data
-
Date of Service: January 06, 2024
No complaints. Pain well-controlled. Tolerated fulls. Passing flatus and nonbloody stools. No dizziness or lightheadedness. Voiding. Ambulating.
Objective Data
-
Intake and Output
01/05/24 01/06/24 01/07/24
06:59 06:59 06:59
Intake Total 3235 / 3235 1580 / 1580
Output Total 650 / 650
Balance 2585 / 2585 1580 / 1580
Intake:
Oral fluids 1730 / 1730 1080 / 1080
IV fluids (Total) 1075 / 1075 300 / 300
IV piggybacks 370 / 370 200 / 200
Amount instilled into GI Tube ( 60 / 60
Total)
[place] Sump 60 / 60
Output:
Gastrointestinal tube output ( 650 / 650
Total)
[place] Sump 650 / 650
Other:
Number of approximated MODERATE 5 3
amounts of urine
Number of approximated LARGE 1
amounts of urine
How many times incontinent 2
MODERATE amount urine
Vital Signs
Temp Pulse Resp BP Pulse Ox
97.8 F 79 18 152/72 98
01/05/24 23:05 01/05/24 23:05 01/05/24 23:05 01/05/24 23:05 01/05/24 23:05
Calcium 8.9 mg/dl (8.4-10.2) 01/05/24 06:26
Magnesium 2.1 mg/dl (1.6-2.3) 01/03/24 06:23
Total Bilirubin 0.6 mg/dl (0.2-1.3) 01/05/24 06:26
AST 24 U/L (14-36) 01/05/24 06:26
ALT 11 U/L (0-35) 01/05/24 06:26
Alkaline Phosphatase 46 U/L (38-126) 01/05/24 06:26
Total Protein 5.5 g/dl (6.3-8.2) L 01/05/24 06:26
Albumin 3.5 g/dl (3.5-5.0) 01/05/24 06:26
Physical Exam
-
Gen: NAD
Abd: soft, appropriately tender, ND, non-peritoneal, incision c/d/i - no erythema, ecchymosis or drainage, small area of skin bruising/necrosis around umbilicus
[2024-01-06] MEDS: ZESTRIL 20 MG PO (08:05)
[2024-01-06] MEDS: MAG-TAB SR 84 MG PO (08:05)
[2024-01-06] MEDS: PROTONIX IV 40 MG IV (08:05)
[2024-01-06] MEDS: ORETIC 25 MG PO (08:05)
[2024-01-06] MEDS: NSS (PRESERVATIVE FREE) 10 ML IV (08:05)
[2024-01-06] MEDS: ULTRAM 50 MG PO (08:08)
[2024-01-06] MEDS: FLUSH (NSS) 2 FLUSH IV ×2 (08:09→12:05)
[2024-01-06 08:13] LABS: % Basophils 0.6 % (0-2); % Eosinophils 2.9 % (0-6); % Immature Granulocytes 0.4 % (0-0.5); % Lymphocytes 25.8 % (20.5-51.1); % Neutrophils 60.3 % (42.2-75.2); Absolute Eosinophils 0.1 10^3/uL (0-0.7); Absolute Lymphocytes 1.2 10^3/uL (1.2-3.4); Absolute Monocytes 0.5 10^3/uL (0.1-0.6); Absolute Neutrophils 2.9 10^3/uL (1.4-6.5); Hematocrit 23.5 % (37.0-47.0); Hemoglobin 8.6 g/dL (12.0-16.0); Mean Corp Hgb Conc. 36.6 g/dL (33.0-37.0); Mean Corpuscular Hgb 30.6 pg (27.0-31.0); Mean Corpuscular Volume 83.6 fL (81.0-99.0); Mean Platelet Volume 9.5 fL (7.4-10.4); Nucleated Red Blood Cells % 0 %; Platelet Count 181 10^3/uL (130-400); Red Blood Cell Count 2.81 10^6/uL (4.20-5.40); Red Cell Dist. Width 12.5 % (11.5-14.5); White Blood Cell Count 4.8 10^3/uL (4.8-10.8)
--- NOTE | 2024-01-06 08:32 | PN.CDI ---
CDI
- -
CDI:
Physician Documentation Request
Admit Date: 01/02/24 13:39
Dear Doctor Jennifer,
Please review the following and provide your response in the progress notes.
Clinical Indicators:
- per H&P 'CHRISTINE unknown baseline renal function'
- 01/04 PN 'CKD3a (doubt CHRISTINE at this time, unknown baseline Cr)'
- Documented labs:
Laboratory Tests
01/02/24 01/02/24 01/03/24
07:35 17:51 06:23
Creatinine 1.2 H 1.1 H 1.3 H
eGFR 48.39 53.72 43.96
01/04/24 01/05/24
05:18 06:26
Creatinine 1.1 H 0.8
eGFR 53.72 > 60.00
Please clarify which of the following accurately represents the patient's renal status:
CHRISTINE on CKD 3 - baseline Cr 0.8
CKD 3a only
Other
Criteria for CHRISTINE*
1 Increase in serum creatinine by > or = to 0.3 mg/dL (> or = to 26.5 micromol/L) within 48 hours, OR
2 Increase in serum creatinine to > or = to 1.5 times baseline, which is known or presumed to have occurred within 7 days, OR
3 Urine volume < 0.5 nL/kg/hour for six hours
Stages of Chronic Kidney Disease*
Level Description GFR
G1 Normal or High >90
G2 Mildly decreased 60-89
G3a Mildly to moderately decreased 45-59
G3b Moderately to severely decreased 30-44
G4 Severely decreased 15-29
G5 Kidney failure <15
Use of terms such as suspected, likely, concern for, or probable (associated with a specific diagnosis that is being evaluated, monitored, or treated as if it exists) are acceptable and can be coded in the inpatient setting, when documented at the
time of discharge.
Thank you,
Dany Gonzalez RN
CDI Specialist
Please use your independent medical judgment in providing your response.
*Source: Kidney Disease: Improving Global Outcomes (KDIGO) 2012
[2024-01-06 08:45] LABS: ALT (SGPT) 10 U/L (0-35); AST (SGOT) 21 U/L (14-36); Albumin 3.1 g/dl (3.5-5.0); Alkaline Phosphatase 43 U/L (38-126); Blood Urea Nitrogen 15 mg/dl (7-17); Calcium 8.8 mg/dl (8.4-10.2); Carbon Dioxide 25 mmol/L (22-30); Chloride 103 mmol/L (98-107); Estimated Creatinine Clearance 68 ml/min; Glucose 94 mg/dl (70-99); Magnesium 1.8 mg/dl (1.6-2.3); Potassium 3.6 mmol/L (3.5-5.1); Sodium 132 mmol/L (135-145); Total Bilirubin 0.7 mg/dl (0.2-1.3); Total Protein 5.2 g/dl (6.3-8.2); eGFR > 60.00
--- NOTE | 2024-01-06 09:36 | CM ---
Patient seen at bedside with physician. Patient states that she is planning to go home today with sister at approx 3pm. IMM completed and signed form placed on chart. Patient plan is for also a patient here at to go to [facility] later
today and CM updated patient and she completed IMM form for patient discharge as well. CM will continue to follow for discharge planning needs.
Plan; [facility]
--- NOTE | 2024-01-06 09:38 | W.PN.HOSP.TC ---
Addendum entered and electronically signed by Geraldine Rodriguez MD 01/06/24 10:00:
CHRISTINE on CKD 3a--resolving
Original Note:
Today's Communication/Plan
-
anticipate d/c
Assessment / Plan
Assessment / Plan
pt is a 73 year old female
Closed loop SBO--on chronic opiates which likely contributed to SBO--s/p 01/02/24 diagnostic laparoscopy, exploratory laparotomy, small bowel resection with primary anastomosis--cont zosyn but will not need at d/c--off IVF--diet advancing
Hypokalemia-replace
Mild hyponatremia-resolved
Acute blood loss Anemia--due to acute postoperative blood loss--not iron deficient--HGB 8.8, 8.6--essentially stable
Other Medical Problems:
Spinal stenosis: on chronic opiates (chronic opiate use with dependence)
CKD3a (doubt CHRISTINE at this time, unknown baseline Cr)-Stop Toradol.
Essential HTN: IV Hydralazine PRN. Hold lisinopril hydrochlorothiazide--restart as able
Former alcohol abuse disorder
FULL CODE
DVT Prophylaxis-SCDs,Lovenox
anticipate d/c later today
Anticipated Discharge: Today
Subjective/Interval History
-
Date of Service: January 06, 2024
pt anxious to go home--if tolerates diet likely d/c this afternoon
Objective Data
-
Labs:
Laboratory Results
01/06/24
06:26
WBC 4.8
Hgb 8.6 L
Hct 23.5 L
Plt Count 181
Sodium 132 L
Potassium 3.6
Chloride 103
Carbon Dioxide 25
BUN 15
Creatinine 0.8
Glucose 94
Calcium 8.8
Total Bilirubin 0.7
AST 21
ALT 10
Alkaline Phosphatase 43
Vital Signs:
max temp for 24 hours
01/04/24
23:07
Temp 98.7 F
Vital Signs
Temp Pulse Resp BP Pulse Ox
98.1 F 74 18 157/77 98
01/06/24 07:05 01/06/24 07:05 01/06/24 07:05 01/06/24 08:05 01/06/24 07:05
I&O
01/05/24 01/06/24 01/07/24
06:59 06:59 06:59
Intake Total 3235 / 3235 1580 / 1580
Output Total 650 / 650
Balance 2585 / 2585 1580 / 1580
Review of Systems
-
All other systems: Reviewed and negative
Physical Exam
-
General: Well Developed, Well Nourished and No Apparent Distress
HEENT: Normocephalic and Atraumatic
Respiratory: Clear to Auscultation; Negative Wheezes or Rhonchi
Cardiac: Regular Rhythm and S1/S2; Negative Murmur
GI: Soft, Nontender, Nondistended and Normal Bowel Sounds
Musculoskeletal: No Clubbing, No Cyanosis and No Edema
Neuro: Awake and Alert
[2024-01-06 15:00] VITALS: BP 160/72
--- NOTE | 2024-01-07 07:03 | W.DCSUMMARY ---
Discharge Summary
Discharge Data
Date of Admission: 01/02/24
Date of Discharge: 01/07/24
-
Pending Results: Yes
Additional Pending Results:
surgical specimen pathology from 01/05/24
Hospital Course
Primary care physician : Mayank Esquivel
Principal Discharge diagnosis : Closed-loop small bowel obstruction, hypokalemia/hyponatremia, acute blood loss anemia
Chronic Discharge diagnosis : spinal stenosis, acute kidney injury on chronic kidney disease stage IIIa, essential hypertension
Hospital Course : Patient was a 73-year-old female who woke up suddenly on the morning of admission at 3 AM with abdominal pain on the right side with nausea and vomiting. She reported having a history of chronic constipation and her last bowel
movement was approximately 1 week prior to admission which is typical for her. She is on chronic opiates twice daily for chronic pain due to spinal stenosis most likely. Patient was found to have a closed-loop small bowel obstruction and was
admitted.
Problem #1: Closed-loop small bowel obstruction. Patient was seen in consultation by surgery and was taken to the operating room on 01/02/2024. Patient underwent exploratory laparotomy with small bowel resection and primary anastomosis. She was
made n.p.o. with IV fluids. Diet was advanced as per surgery. At the time of discharge patient was tolerating solid food and having bowel movements.
Problem #2: Hypokalemia/hyponatremia/acute blood loss anemia. These issues were monitored, and electrolytes replaced as necessary. The anemia was due to acute postoperative blood loss with likely IV dilution. Iron levels were checked and she was
not iron deficient. She did not require blood transfusions.
Problem #3: All other medical issues. These include spinal stenosis, acute kidney injury on chronic kidney disease stage IIIa, essential hypertension. These medical issues were stable during her hospitalization. Medications were continued as able.
Patient is stable for discharge home at this time. If there are any questions regarding this dictation or her hospital stay, please do not hesitate to call. Our office number is [phone].
Important imaging findings :
CT SCAN ABDOMEN/PELVIS IMPRESSION:
1. Findings suspicious for acute closed-loop distal small bowel obstruction. Urgent surgical consultation is recommended.
Procedure findings :
SURGICAL NOTE:
Primary Surgeon: Saundra
Assisting Surgeon: SANDI Barajas
Pre-op Diagnosis: SBO
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
Procedure Performed: Diagnostic laparoscopy, exploratory laparotomy, small bowel resection with primary anastomosis
Anesthesia Type: General
Specimen / Cultures:
1. Portion of small bowel
Estimated Blood Loss: 101 cc
Complications: None
Operative Findings:
1. Diagnostic laparoscopy identifying segment of ischemic bowel, conversion to midline laparotomy
2. Omental adhesion within pelvis taken down, adhesion within RUQ causing midgut volvulus
3. 55 cm segment of ischemic bowel, resection with [id number] stapled anastomosis using MAGALI 80 blue load (Baljinder technique)
4. Small bowel run from TI to LT
5. NGT placement confirmed, Mitchell in place
Discharge Plan
-
Patient Disposition: Home (Routine Discharge)
Discharge Diagnosis/Procedures: small bowel obstruction Exploratory laparotomy small bowel resection with primary anastomosis, CHRISTINE on CKD3a, hypokalemia/hyponatremia, essential hypertension
Condition: Good
Diet: As tolerated and Low Fiber
Activity: No strenuous activity
Additional Activity: Do not lift over 20lbs for the next 4-6 weeks
Driving Restrictions: No driving if too sore or taking narcotics
Bathing Restrictions: OK to Shower
Wound Care: Keep incision clean and dry. [place] to be removed in the office. Cover with dry gauze as needed to prevent any pulling or irritation of the mechelle.
Activity Restrictions/Additional Instructions:
Call for fevers (>100.5), nausea or vomiting, worsening abdominal pain
Referrals:
Franky Arguello MD [Active] - in one week (Staple removal)
Mayank Esquivel DO [Family Provider] - in less than 1 week
Prescriptions:
New
acetaminophen 325 mg Tablet
650 mg PO Q4HPRN PRN (Reason: mild pain) Qty: 1 0RF
tramadol 50 mg Tablet
50 mg PO Q6HPRN PRN (Reason: moderate pain) Qty: 14 0RF
Continued
oxycodone-acetaminophen 5-325 mg Tablet
1 tab PO BID
Patient Comments:
01/02/24: filled 12/13/23 for 60 tablets at [facility].
magnesium oxide 400 mg (241.3 mg magnesium) Tablet
400 mg PO DAILY
esomeprazole magnesium 40 mg Capsule,Delayed Release(Dr/Ec)
40 mg PO DAILY
docusate sodium [Stool Softener] 100 mg Capsule
100 mg PO QPM
lisinopril-hydrochlorothiazide 20-25 mg Tablet
1 tab PO DAILY
omega 2-bsy-cvg-fish oil [Fish Oil] 1,000 mg (120 mg-180 mg) Capsule
1 cap PO DAILY
iblgoemqjns-B7-Tzysnspjn serr [Osteo Bi-Flex (5-Loxin)] 1,500-400-100 mg-unit-mg Tablet
1 tab PO DAILY
turmeric 400 mg Capsule
400 mg PO DAILY
Held
meloxicam 15 mg Tablet
15 mg PO DAILY
Hold Instructions: discuss restarting with your surgeon
Discharge Orders:
Discharge Patient (As Directed); Ordered 01/06/24
Ordered By: Geraldine Rodriguez
Discharge Date and Time
Discharge Date/Time: 01/06/24 16:41
Print Language: ARABIC
== END 2024-01-06 16:41 | disposition home health service (06) | DRG 329 ==
LOC: 2 SOUTH 13:39
PROVIDERS: Clinical Nurse Specialist Family Health; Hospitalist; ADMITTING PHYSICIAN Surgery; ATTENDING PHYSICIAN Internal Medicine; EMERGENCY PHYSICIAN Emergency Medicine; FAMILY PHYSICIAN Family Medicine
PROC: 0WJG4ZZ Inspection of Peritoneal Cavity, Percutaneous Endoscopic Approach (ICD-10-PCS; 2024-01-02)
PROC: 0DB80ZZ Excision of Small Intestine, Open Approach (ICD-10-PCS; 2024-01-02)
DX: K56.699 Other intestinal obstruction unspecified as to partial versus complete obstruction (principal); K55.011 Focal (segmental) acute (reversible) ischemia of small intestine; K55.021 Focal (segmental) acute infarction of small intestine; D62 Acute posthemorrhagic anemia; N17.9 Acute kidney failure, unspecified; R18.8 Other ascites; E87.1 Hypo-osmolality and hyponatremia; K56.2 Volvulus; N18.31 Chronic kidney disease, stage 3a; I12.9 Hypertensive chronic kidney disease with stage 1 through stage 4 chronic kidney disease, or unspecified chronic kidney disease; K21.9 Gastro-esophageal reflux disease without esophagitis; M48.00 Spinal stenosis, site unspecified; K59.09 Other constipation; K66.0 Peritoneal adhesions (postprocedural) (postinfection); G89.29 Other chronic pain; E87.6 Hypokalemia; Z79.899 Other long term (current) drug therapy; Z90.710 Acquired absence of both cervix and uterus; Z79.1 Long term (current) use of non-steroidal anti-inflammatories (NSAID); Z53.31 Laparoscopic surgical procedure converted to open procedure; Z79.891 Long term (current) use of opiate analgesic
CPT/HCPCS: 88307; 43752; 71045; 74177; 80048; 80053; 82607; 82728; 83540; 83550; 83605; 83735; 85025; 85027; 86850; 86900; 86901; 93005; 96372; 96374; 96375; 96376; 97166; 99285; C1776; Q9967